=== PATIENT | female | born 1995 | race American Indian/Alaskan Native ===

== ENCOUNTER 2018-02-05 16:44 | Emergency (ER) | payer SELFPAY ==
[2018-02-05 17:13] VITALS: BP 126/70
[2018-02-05] MEDS ORDERED: ULTRAM PO ONE (18:08)
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
--- NOTE | 2018-02-05 19:25 | XRay Report ---
FINAL REPORT EXAM: XR FINGER(S) 2+V LT TECHNIQUE: Three views of the left thumb: AP view of the hand, AP and lateral projections of the left thumb. PRIORS: None. FINDINGS: There is no radiographic evidence of acute fracture or dislocation. No significant degenerative changes. Osseous mineralization is normal. Mild soft tissue swelling about the thumb. IMPRESSION: Mild soft tissue swelling, no acute osseous abnormality or significant degenerative change. HISTORY: Left thumb injury
== END 2018-02-05 19:31 | disposition home or self-care (01) ==
LOC: ED 16:44
DX: S63.602A Unspecified sprain of left thumb, initial encounter (principal); X58.XXXA Exposure to other specified factors, initial encounter; Y93.89 Activity, other specified; Y92.89 Other specified places as the place of occurrence of the external cause; Y99.8 Other external cause status
CPT/HCPCS: 99283

== ENCOUNTER 2018-02-28 18:36 | Emergency (ER) | payer OTHER ==
[2018-02-28 18:47] VITALS: BP 103/53
[2018-02-28] MEDS ORDERED: MOTRIN PO ONE (21:39)
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
== END 2018-02-28 22:39 | disposition home or self-care (01) ==
LOC: ED 18:36
DX: S39.012A Strain of muscle, fascia and tendon of lower back, initial encounter (principal); S13.4XXA Sprain of ligaments of cervical spine, initial encounter; S93.401A Sprain of unspecified ligament of right ankle, initial encounter; V89.2XXA Person injured in unspecified motor-vehicle accident, traffic, initial encounter; Y93.89 Activity, other specified; Y92.89 Other specified places as the place of occurrence of the external cause; Y99.8 Other external cause status
CPT/HCPCS: 99283

== ENCOUNTER 2018-11-12 03:20 | Emergency (ER) | payer OTHER ==
[2018-11-12] MEDS ORDERED: TYLENOL PO ONE (04:08)
[2018-11-12] MEDS ORDERED: SUBLIMAZE IV ONE (07:55)
[2018-11-12] MEDS ORDERED: ZOFRAN IV ONE (07:55)
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
[2018-11-12 08:11] LABS: Basophils % (Auto) 0.4 % (0.0-1.8); Eosinophils # (Auto) 0.1 K/mm3 (0.0-0.4); Eosinophils % (Auto) 1.3 % (0.0-4.3); Hematocrit 36.5 % (30.3-42.9); Hemoglobin 12.2 gm/dl (10.1-14.3); Lymphocytes # (Auto) 2.8 K/mm3 (1.2-5.4); Lymphocytes % (Auto) 40.4 % (13.4-35.0); Mean Corpuscular HGB Conc 33 % (30-34); Mean Corpuscular Volume 91 fl (79-97); Monocytes # (Auto) 0.5 K/mm3 (0.0-0.8); Monocytes % (Auto) 6.6 % (0.0-7.3); Platelet Count 243 K/mm3 (140-440); Red Blood Count 4.01 M/mm3 (3.65-5.03); Red Cell Distribution Width 13.6 % (13.2-15.2)
[2018-11-12 08:28] LABS: Alanine Aminotransferase 12 units/L (7-56); Albumin 4.3 g/dL (3.9-5); BUN/Creatinine Ratio 30; Blood Urea Nitrogen 15 mg/dL (7-17); Calcium 9.3 mg/dL (8.4-10.2); Hemolysis Index 9
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
[2018-11-12 12:10] VITALS: BP 121/63
== END 2018-11-12 12:10 | disposition home or self-care (01) ==
LOC: ED 03:20
DX: S16.1XXA Strain of muscle, fascia and tendon at neck level, initial encounter (principal); S39.012A Strain of muscle, fascia and tendon of lower back, initial encounter; S29.012A Strain of muscle and tendon of back wall of thorax, initial encounter; S80.02XA Contusion of left knee, initial encounter; V49.49XA Driver injured in collision with other motor vehicles in traffic accident, initial encounter; Y93.89 Activity, other specified; Y99.8 Other external cause status; Y92.410 Unspecified street and highway as the place of occurrence of the external cause
CPT/HCPCS: 36415; 70450; 72072; 72125; 73562; 74177; 80053; 84703; 85025; 96374; 96375; 99284; J2405; J3010; Q9967

== ENCOUNTER 2021-04-04 23:27 | Emergency (ER) | payer OTHER ==
[2021-04-05 00:44] VITALS: BP 110/54
== END 2021-04-05 02:03 | disposition home or self-care (01) ==
LOC: ED 23:27
DX: M54.2 Cervicalgia (principal); R51.9 Headache, unspecified; Z79.899 Other long term (current) drug therapy; V87.7XXA Person injured in collision between other specified motor vehicles (traffic), initial encounter; Y93.89 Activity, other specified; Y92.488 Other paved roadways as the place of occurrence of the external cause; Y99.8 Other external cause status
CPT/HCPCS: 72040; 99283